=== PATIENT | female | born 1960 | race Caucasian/White ===

== ENCOUNTER 2022-11-10 13:53 | Outpatient (CLI) | payer OTHER, SELFPAY ==
--- NOTE | 2022-11-10 14:04 | XRR_ITS ---
PROCEDURE INFORMATION: Exam: XR Chest Exam date and time: 11/10/2022 2:09 PM Age: 62 years old Clinical indication: Injury or trauma; Fall; Blunt trauma (contusions or hematomas); Additional info: Chest wall trauma TECHNIQUE: Imaging protocol: Radiologic exam of the chest. Views: 2 views. COMPARISON: CR XR chest 2V* [id number] 01/18/2019 5:59 PM FINDINGS: Lungs: Lung volumes are mildly decreased progressed from previous exam. Scattered coarsened interstitial opacities mid to lower lung zones that appear to progress from previous exam and may be secondary to idiopathic interstitial lung disease or chronic airway changes with accompanying linear atelectasis, better assessed on CT examination. Pleural spaces: Unremarkable. No pleural effusion. No pneumothorax. Heart/Mediastinum: Heart is mildly enlarged, unchanged. Bones/joints: Mild degenerative changes throughout the thoracic spine. No acute bony abnormalities detected. XR/XR chest 2V* [id number] IMPRESSION: Decreased lung volumes with scattered interstitial opacities both lung wheeler as discussed above.
== END 2022-11-10 13:54 | disposition home or self-care (01) ==
PROVIDERS: PCP Internal Medicine; Visit Provider Internal Medicine
DX: S29.9XXA Unspecified injury of thorax, initial encounter (principal); X58.XXXA Exposure to other specified factors, initial encounter
CPT/HCPCS: 71046

== ENCOUNTER 2023-11-14 13:03 | Outpatient (CLI) | payer OTHER, SELFPAY ==
--- NOTE | 2023-11-14 13:00 | MM_ITS ---
WS: [id number] BILATERAL 3D TOMOSYNTHESIS DIGITAL SCREENING MAMMOGRAPHY WITH CAD CLINICAL INFORMATION: SCREENING HISTORY: Screening mammogram. No current complaints. COMPARISON: 2008 TECHNIQUE: Bilateral CC and MLO views. FINDINGS: Scattered fibroglandular densities bilaterally. No suspicious focal mass, asymmetry, calcifications, or architectural distortion. No evidence of malignancy. Few incidental punctate calcifications. MM/[place] [id number] IMPRESSION: BI-RADS: 2-Benign FOLLOW UP: 1 Year Follow-up Recommend return to annual screening mammography.
== END 2023-11-14 13:04 | disposition home or self-care (01) ==
LOC: MOBLMAM 13:23
PROVIDERS: PCP Internal Medicine; Visit Provider Internal Medicine
DX: Z12.31 Encounter for screening mammogram for malignant neoplasm of breast (principal); R92.323 Mammographic fibroglandular density, bilateral breasts; R92.1 Mammographic calcification found on diagnostic imaging of breast
CPT/HCPCS: 77063; 77067

== ENCOUNTER 2024-07-19 07:33 | Outpatient (CLI) | payer OTHER, SELFPAY ==
--- NOTE | 2024-07-19 07:37 | MR_ITS ---
WS: [id number] MRI LEFT SHOULDER HISTORY: ROTATOR CUFF ARTHROPATHY OF L SHOULDER COMPARISON: None available. TECHNIQUE: Multiplanar sequences of the shoulder joint are submitted. Moderate AC joint arthritis. Hypertrophic bone formation involving the distal clavicle and acromion. Edema within the distal clavicle and acromion. Mild downsloping of the acromion. Moderate subacromial impingement. Small amount of fluid in the subacromial and subdeltoid bursa. No os acromion. Very tiny caliber biceps tendon in the bicipital groove with increased fluid in the tendon sheath. High riding humeral head. Loss of cartilage involving the glenoid and humeral head. Subchondral edema over the greater tuberosity. There is a full-thickness tear in the distal supraspinatus tendon, tear involves the anteriormost tendon overlapping with the subscapularis tendon. There is additional extensive tendinopathy extending through the distal 2 cm of the tendon. Moderate supraspinatus muscle atrophy without edema. Mild subscapularis tendinopathy. Infraspinatus tendon insertion site tear also. No retraction of the tendon. Intrasubstance degeneration within the labrum. No definite labral tear is identified. MR/MR shoulder LT wo con* [id number] IMPRESSION: 1. Moderate AC joint hypertrophy with encroachment upon the myotendinous porti on of the supraspinatus. 2. Downsloping acromion. 3. Full-thickness tear distal supraspinatus tendon with additional 2 cm of ten dinopathy. 4. Moderate supraspinatus muscle atrophy. 5. Small insertion site tear of the infraspinatus tendon. 6. Mild subscapularis tendinopathy. 7. Tiny caliber remaining biceps tendon in the bicipital groove with tenosynov itis. Majority of the tendon appears to be torn and retracted. 8. Loss of cartilage over the glenoid and humeral head with marrow edema in th e greater tuberosity.
== END 2024-07-19 07:34 | disposition home or self-care (01) ==
PROVIDERS: PCP Internal Medicine; Visit Provider Internal Medicine
DX: M19.012 Primary osteoarthritis, left shoulder (principal); M89.312 Hypertrophy of bone, left shoulder; R93.6 Abnormal findings on diagnostic imaging of limbs; M75.102 Unspecified rotator cuff tear or rupture of left shoulder, not specified as traumatic; M62.512 Muscle wasting and atrophy, not elsewhere classified, left shoulder; M65.812 Other synovitis and tenosynovitis, left shoulder; M24.112 Other articular cartilage disorders, left shoulder; M75.42 Impingement syndrome of left shoulder
CPT/HCPCS: 73221

== ENCOUNTER 2024-08-06 06:00 | Outpatient (RCR) | payer OTHER, SELFPAY | END 2024-09-04 23:59 | disposition home or self-care (01) | LOC: APT 06:00 | PROVIDERS: PCP Internal Medicine; Visit Provider Orthopaedic Surgery | DX: Z98.890 Other specified postprocedural states (principal) | CPT/HCPCS: 97110; 97140; 97161; 97530 ==

== ENCOUNTER 2024-09-05 06:00 | Outpatient (RCR) | payer OTHER, SELFPAY | END 2024-10-05 23:59 | disposition home or self-care (01) | LOC: APT 06:00 | PROVIDERS: PCP Internal Medicine; Visit Provider Orthopaedic Surgery | DX: Z98.890 Other specified postprocedural states (principal) | CPT/HCPCS: 97110; 97530 ==

== ENCOUNTER 2024-10-06 05:00 | Outpatient (RCR) | payer OTHER, SELFPAY | END 2024-11-04 23:59 | disposition home or self-care (01) | LOC: APT 05:00 | PROVIDERS: PCP Internal Medicine; Visit Provider Orthopaedic Surgery | DX: Z98.890 Other specified postprocedural states (principal) | CPT/HCPCS: 97110; 97140; 97530 ==

== ENCOUNTER 2024-11-05 05:00 | Outpatient (RCR) | payer OTHER, SELFPAY | END 2024-12-05 23:59 | disposition home or self-care (01) | LOC: APT 05:00 | PROVIDERS: PCP Internal Medicine; Visit Provider Orthopaedic Surgery | DX: Z98.890 Other specified postprocedural states (principal) | CPT/HCPCS: 97110; 97530 ==

== ENCOUNTER 2024-12-06 06:30 | Outpatient (RCR) | payer OTHER, SELFPAY | END 2025-01-05 23:59 | disposition home or self-care (01) | LOC: APT 06:30 | PROVIDERS: PCP Internal Medicine; Visit Provider Orthopaedic Surgery | DX: Z98.890 Other specified postprocedural states (principal) | CPT/HCPCS: 97110; 97140; 97530 ==

== ENCOUNTER 2025-02-19 16:47 | Outpatient (CLI) | payer OTHER, SELFPAY ==
--- NOTE | 2025-02-19 16:57 | XR_ITS ---
WS: [id number] XR abdomen 1V* [id number] REASON FOR EXAM: DIARRHEAL DISEASE FINDINGS: No free air or retroperitoneal air. No organomegaly or mass. No distended colon or small bowel. Multiple small collections of air along the course of the descending colon and sigmoid. CT scan of 06/26/2023 demonstrates significant diverticulosis. Presumably these are multiple diverticuli filled with gas. The gas pattern of the right colon suggest significant mural thickening which may be indicative of inflammation. XR/XR abdomen 1V* [id number] IMPRESSION: The gas pattern in the descending and sigmoid colon is unusual and of unknown s ignificance. Bowel gas pattern of the right colon suggest the possibility of colitis.
== END 2025-02-19 16:48 | disposition home or self-care (01) ==
PROVIDERS: PCP Internal Medicine; Visit Provider Internal Medicine
DX: K52.9 Noninfective gastroenteritis and colitis, unspecified (principal); R14.0 Abdominal distension (gaseous)
CPT/HCPCS: 74018

== ENCOUNTER 2025-04-15 12:54 | Outpatient (CLI) | payer OTHER, SELFPAY ==
--- NOTE | 2025-04-15 13:20 | MM_ITS ---
WS: [id number] BILATERAL 3D TOMOSYNTHESIS DIGITAL SCREENING MAMMOGRAPHY WITH CAD CLINICAL INFORMATION: SCREENING HISTORY: Screening mammogram. No current complaints. COMPARISON: 2023 TECHNIQUE: Bilateral CC and MLO views. FINDINGS: Scattered fibroglandular densities bilaterally. No suspicious focal mass, asymmetry, calcifications, or architectural distortion. No evidence of malignancy. Incidental punctate calcifications MM/MM scr BI tomosynthesis [id number] IMPRESSION: DENSITY: There are scattered areas of fibroglandular density. BI-RADS: 2 - Benign. FOLLOW UP: 1 Year Follow-up Recommend return to annual screening mammography.
== END 2025-04-15 12:55 | disposition home or self-care (01) ==
LOC: MOBLMAM 12:58
PROVIDERS: PCP Internal Medicine; Visit Provider Internal Medicine
DX: Z12.31 Encounter for screening mammogram for malignant neoplasm of breast (principal); R92.323 Mammographic fibroglandular density, bilateral breasts; R92.1 Mammographic calcification found on diagnostic imaging of breast
CPT/HCPCS: 77063; 77067